=== PATIENT | male | born 1980 ===

== ENCOUNTER 2024-09-10 06:45 | Day surgery (SDC) | payer OTHER ==
[2024-09-03 10:23] LABS: BASO % 0.1 % (0.1-1.2); EOS # 0.21 (0.04-0.54); EOS % 3.1 % (0.7-7.0); HEMATOCRIT 39.8 % (40.1-51.0); HEMOGLOBIN 13.6 g/dL (13.7-17.5); LYMPH # 1.86 (1.18-3.74); LYMPH % 27.3 % (19.3-53.1); MEAN CORPUSCULAR HEMOGLOBIN 28.5 pg (25.6-32.2); MONO # 0.58 (0.24-0.82); MONO % 8.5 % (4.7-12.5); NEUT # 4.14 (1.56-6.13); NEUT % 60.7 % (34.0-71.1); PLATELET COUNT 269 K/uL (163-369); RED BLOOD COUNT 4.78 M/uL (4.63-6.08); RED CELL DISTRIBUTION WIDTH 12.4 % (11.6-14.4)
[2024-09-03 10:31] LABS: URINE APPEARANCE Clear; URINE BILIRRUBIN Negative (NEGATIVE); URINE BLOOD Negative; URINE COLOR Yellow; URINE GLUCOSE Negative (NEGATIVE); URINE KETONE Negative (NEGATIVE); URINE LEUKOCYTE Negative; URINE NITRATE Negative; URINE PROTEIN Negative (NEGATIVE); URINE UROBILINOGEN 0.2 E.U./dl
[2024-09-03 10:35] VITALS: BP 105/69
[2024-09-03 10:35] LABS: URINE WBC 2.6 uL (0.0-23.2)
[2024-09-03 11:00] LABS: INR 0.99; PARTIAL THROMBOPLASTIN TIME 26.7 SECONDS (22.0-34.0); PROTHROMBIN TIME 10.8 SECONDS (9.0-11.5)
[2024-09-03 11:03] LABS: URINE BACTERIA 1.2 uL (0.0-1933); URINE EPITHELIAL CELLS 1.2 uL (0.0-38.8); URINE RBC 1.4 uL (0.0-20.8)
[2024-09-03 11:19] LABS: ALBUMIN 4.3 gm/dL (3.4-5.0); BILIRUBIN TOTAL 0.64 mg/dL (0.3-1.2); CALCIUM 9.1 mg/dL (8.5-10.1); CREATININE SERUM 0.89 mg/dL (0.70-1.30); GFR 93.74; GLOBULINA 3.5 G/DL (2.4-3.5); POTASSIUM 4.61 mEq/L (3.5-5.1); TOTAL PROTEIN 7.8 gm/dL (6.4-8.2)
[~2024-09-10] VITALS: Ht 167.6 cm; Wt 72.1 kg
[2024-09-10] MEDS ORDERED: CEFAZOLIN SODIUM 1,000 MG VIAL ONE (09:03)
[2024-09-10] MEDS ORDERED: BUPIVACAINE HCL 30 ML VIAL IJ ONE (13:45)
[2024-09-10] MEDS ORDERED: MORPHINE SULFATE 4 MG/ML VIAL IV ONE (15:00)
== END 2024-09-10 17:20 | disposition home or self-care (01) ==
LOC: CIR.AMB 06:45
PROVIDERS: ATTEND Orthopaedic Surgery Hand Surgery
DX: D21.11 Benign neoplasm of connective and other soft tissue of right upper limb, including shoulder (principal)